=== PATIENT | male | born 1995 | race Caucasian/White ===

== ENCOUNTER 2017-08-24 16:43 | Inpatient (IN) | payer OTHER ==
[~2017-08-24] VITALS: Ht 180.3 cm; Wt 75.2 kg
[2017-08-24 16:59] LABS: BASOPHIL COUNT 0.1 K/uL (0-0.1); EOSINOPHIL (%) 0.8 % (0-5); EOSINOPHIL COUNT 0.1 K/uL (0-0.3); HEMATOCRIT 40.8 % (38.0-50.0); IMMATURE GRANULOCYTE (%) 0.6 % (0.0-0.7); IMMATURE GRANULOCYTE COUNT 0.1 K/uL; INSTRUMENT ABS NEUTROPHIL CT 7.7 K/uL; LYMPHOCYTE COUNT 1.5 K/uL (1.0-2.8); MCH 29.6 PG (29.0-34.0); MCHC 34.6 G/DL (30.0-36.0); MCV 85.7 FL (86-99); MEAN PLAT.VOLUME 10.4 uM^3 (9.0-12.4); MONOCYTE (%) 8.4 % (3-12); MONOCYTE COUNT 0.9 K/uL (0-0.8); NEUTROPHIL (%) 75.2 % (45-76); NEUTROPHIL COUNT 7.7 K/uL (1.8-6.4); PLATELET COUNT 221 K/uL (156-360); RBC DIS.WIDTH-CV 11.9 % (11.8-14.6); RBC DIS.WIDTH-SD 37.4 % (39-53); RED BLOOD COUNT 4.76 M/uL (4.00-5.50); WHITE BLOOD COUNT 10.2 K/uL (4.1-10.2)
[2017-08-24 17:07] LABS: AMYLASE 57 IU/L (1-118); CHLORIDE 105 mEq/L (99-109); POTASSIUM 3.6 mEq/L (3.7-5.4); SODIUM 141 mEq/L (136-147)
[2017-08-24 17:09] LABS: GLUCOSE 96 mg/dL (70-99)
[2017-08-24 17:10] LABS: ANION GAP 11 MEQ/L (2-14)
[2017-08-24 17:12] LABS: SERUM ETHYL ALCOHOL < 10 mg/dL
[2017-08-24 17:14] LABS: UREA NITROGEN (BUN) 17 mg/dL (9-23)
[2017-08-24 17:16] LABS: GFR ESTIMATE (CALCULATED) > 59 mL/min/ (58.99-99999); LIPASE 17 U/L (1.0-51.0)
[2017-08-24 20:53] VITALS: BP 114/56
[2017-08-25] VITALS (7 sets, daily range): BP systolic 115–122; BP diastolic 55–64
[2017-08-26 03:33] VITALS: BP 116/67
[2017-08-26 07:30] VITALS: BP 123/62
[2017-08-26] MEDS ORDERED: TRAMADOL HCL50 MG PO (11:39)
== END 2017-08-26 13:09 | disposition home or self-care (01) | DRG 494 ==
LOC: TRA 16:43 → EDOF 18:14 → ENRESERV 18:15 → EDOF 19:28 → 3EAST 20:14
PROVIDERS: Emergency Medicine
PROC: 0QSG06Z Reposition Right Tibia with Intramedullary Internal Fixation Device, Open Approach (ICD-10-PCS; principal; 2017-08-24)
DX: S82.291A Other fracture of shaft of right tibia, initial encounter for closed fracture (principal); W19.XXXA Unspecified fall, initial encounter; S82.401A Unspecified fracture of shaft of right fibula, initial encounter for closed fracture; Z88.0 Allergy status to penicillin; Z79.82 Long term (current) use of aspirin; Z23 Encounter for immunization
CPT/HCPCS: 70450; 71010; 72125; 72170; 73590; 76000; 80048; 81003; 82150; 83690; 85025; 86850; 86900; 86901; 90686; 94799; 99281; 99285; C1713; G0480; J0690; J1100; J1170; J1644; J1885; J2250; J2405; J2710; J3010